=== PATIENT | female | born 1935 | race Caucasian/White ===

== ENCOUNTER 2017-06-06 13:59 | Outpatient (CLI) | payer BC ==
[2017-06-06 15:27] LABS: Bilirubin Negative (Negative); Blood, Urine Negative (Negative); Clarity CLOUDY (Clear); Glucose, Urine (Dipstick) Negative (Negative); Leukocyte Negative (Negative); Nitrite Negative (Negative); Protein, Urine (Dipstick) Negative (Neg-Trace); Specific Gravity, Urine 1.016 (1.002-1.036); Urobilinogen 0.2 mg/dL (0.2-1.0)
[2017-06-06 15:29] LABS: #Basophils 0.1 thou/uL (0.0-0.2); #Eosinphils 0.2 thou/uL (0.0-0.7); #Monocytes 0.8 thou/uL (0.11-0.59); #Neutrophils 5.8 thou/uL (1.40-6.50); %Basophils 1.5 % (0.0-1.0); %Lymphocytes 30.4 % (21.0-51.0); %Monocytes 7.8 % (0.0-10.0); %Neutrophils 58.4 % (42.0-75.0); Hemoglobin 13.7 g/dL (12.0-16.0); Mean Corpuscular HGB CONC 33.8 g/dL (32.0-36.0); Mean Corpuscular Hemoglobin 33.1 pg (27.0-31.0); Mean Corpuscular Volume 98.2 fl (81.0-99.0); Mean Platelet Volume 7.6 fL (7.4-10.4); Platelet Count 297 thou/uL (130-400); RBC Distribution Width 12.2 % (11.5-14.5); Red Blood Cell (RBC) Count 4.14 mill/uL (4.20-5.40); White Blood Cell (WBC) Count 9.9 thou/uL (4.8-10.8)
--- NOTE | 2017-06-06 15:33 | RAD ---
TWO VIEWS CHEST: History: Pre-operative exam. Comparison: 06-07-06 FINDINGS: Normal cardiac silhouette. The pulmonary vessels and hilum are normal. Costophrenic angles are clear. Hyperinflation. Questionable nodule versus summation artifact in the right lung base. No pneumothora x or osseous abnormality. IMPRESSION: Questionable artifact versus nodule in the right lung base. CT is recommended. Code T POS: REZA
[2017-06-06 15:49] LABS: Anion Gap 12 mmol/L (10-20); BUN (Urea Nitrogen) 20 mg/dL (9.8-20.1); Calc. Creatinine Clearance 0 mL/min (70-130); Calcium 9.5 mg/dL (7.8-10.44); Carbon Dioxide 29 mmol/L (23-31); Chloride 103 mmol/L (98-107); Estimated GFR-MDRD 71; Glucose 125 mg/dL (83-110); Potassium 3.9 mmol/L (3.5-5.1); Sodium 140 mmol/L (136-145)
== END 2017-06-06 14:00 | disposition home or self-care (01) ==
LOC: LABBT 13:59
PROVIDERS: ATTEND Orthopaedic Surgery Hand Surgery
DX: Z01.818 Encounter for other preprocedural examination (principal); M65.332 Trigger finger, left middle finger; M65.331 Trigger finger, right middle finger; M65.322 Trigger finger, left index finger; M65.321 Trigger finger, right index finger; Z88.8 Allergy status to other drugs, medicaments and biological substances; Z88.1 Allergy status to other antibiotic agents
CPT/HCPCS: 71046; 80048; 81003; 85025; 93005; 93010

== ENCOUNTER 2017-06-07 08:28 | Day surgery (SDC) | payer BC ==
[2017-06-06 14:29] VITALS: BMI 22.2
[2017-06-07] MEDS ORDERED: Midazolam HCl 2 mg/2 ml Vial ONE (09:59)
[2017-06-07] MEDS ORDERED: Dexamethasone 20 MG/5 ML VIAL ONE ×2 (11:41)
[2017-06-07] MEDS ORDERED: Ondansetron HCl/PF 4 MG/2 ML Vial ONE (11:41)
[2017-06-07] MEDS ORDERED: PROPOFOL 200 MG/20 ML VIAL ONE (11:41)
[2017-06-07] MEDS ORDERED: Lidocaine 1% PF 5 ML VIAL ONE (11:41)
[2017-06-07] MEDS ORDERED: Fentanyl 100 MCG/2 ML VIAL ONE ×3 (12:43→16:43)
[2017-06-07] MEDS ORDERED: Bacitracin Zinc Ointment 30 gm TUBE ONE ×2 (14:29→15:27)
[2017-06-07] MEDS ORDERED: Bupivacaine PF 0.5% 30 ML VIAL ONE (14:29)
[2017-06-07] MEDS ORDERED: Sodium Chloride 0.9% 10 ML ONE (14:29)
[2017-06-07] MEDS ORDERED: Clindamycin/D5W 600 mg/50 ml Premix Bag ONE (14:39)
[2017-06-07] MEDS ORDERED: Betamet Acet/Betamet Na Ph 30 MG/5 ML VIAL ONE (15:27)
[2017-06-07] MEDS ORDERED: Non-Formulary Medication 1 EACH PO PRN (16:47)
[2017-06-07] MEDS ORDERED: Ondansetron HCl/PF 4 MG/2 ML Vial IVP PRN ×2 (16:47)
[2017-06-07] MEDS ORDERED: Promethazine HCl 25 MG/ML VIAL IM/IV PRN ×2 (16:47)
--- NOTE | 2017-06-07 22:20 | OP ---
PREOPERATIVE DIAGNOSIS: Right and left index and middle finger trigger digit. POSTOPERATIVE DIAGNOSIS: Tight A1 olga at the right and left middle finger and index finger. PROCEDURES PERFORMED: Right side: 1. Index finger A1 olga release. 2. Middle finger A1 olga release. Left side: 1. Index finger trigger digit release. 2. Middle finger trigger digit release. TOURNIQUET TIME: On the right was 9 minutes and on the left was 10 minutes. ESTIMATED BLOOD LOSS: Less than 5 mL bilateral. INJECTABLE: Celestone 2.5 mL in each side drip technique. INDICATION: The patient with pain, catching, and incomplete motion to index and long finger leesaatera l. DESCRIPTION OF PROCEDURE: After successful general LMA technique, the limb was prepped and draped bi laterally. We then gave each site, 8 mL of 0.5% Marcaine local infiltrated block, we began on the le ft with exsanguination of the limb. A timeout was done for left and right and then tourniquet inflat ed to 250 mmHg pressure at the mid forearm and left because the IV was in antecubital. We then made a zigzag incision centered between the two A1 olga dissecting first toward the index side visualize d both neurovascular bundles and then between them, the A1 olga, which was very thick. We made an incision throughout the entire length, visualized directly with a Tarlton blade, lifted up the tendon, there were no masses. At the left side, then we dissected to the other side neurovascular bundle between the index and long finger, and at the middle finger protected it, visualized the A1 olga and released it as well as n o tenosynovitis either side on the left, no synovectomy was done. The mirror image procedure that just described on the left side, we have done on the right with the s gali findings and results. Both sides, the tourniquets were released, which was 9 on the right and 10 on the left. We then obta ined hemostasis, placed 2.5 mL drip technique into both wounds, closed individually with 5-0 nylon in terrupted mattress pattern. A bulky dressing was applied and the patient left the operating room wit h pink digits. No evidence of anesthetic or operative complications.
== END 2017-06-07 17:52 | disposition home or self-care (01) ==
LOC: SDC 08:28
PROVIDERS: ATTEND Orthopaedic Surgery Hand Surgery
PROC: 0LN70ZZ Release Right Hand Tendon, Open Approach (ICD-10-PCS; principal; 2017-06-07)
PROC: 0LN80ZZ Release Left Hand Tendon, Open Approach (ICD-10-PCS; principal; 2017-06-07)
DX: M65.321 Trigger finger, right index finger (principal); M65.322 Trigger finger, left index finger; M65.331 Trigger finger, right middle finger; M65.332 Trigger finger, left middle finger; Z88.0 Allergy status to penicillin; Z88.8 Allergy status to other drugs, medicaments and biological substances; Z79.899 Other long term (current) drug therapy; Z96.653 Presence of artificial knee joint, bilateral; Z96.642 Presence of left artificial hip joint
CPT/HCPCS: 96374; A4216; J0702; J1100; J2001; J2250; J2405; J2704; J3010; J3490; S0020

== ENCOUNTER 2017-09-16 11:00 | Day surgery (SDC) | payer BC ==
[2017-09-15 13:30] VITALS: BMI 22.2
[2017-09-16] MEDS ORDERED: Gadobenate Dimeglumine 529 MG/1 ML (20ML VIAL) ONE (12:20)
--- NOTE | 2017-09-16 14:15 | MRI ---
MRI OF THE RIGHT SHOULDER MRI OF THE RIGHT SHOULDER WITH AND WITHOUT CONTRAST: INDICATION: History of rotator cuff tear. CONTRAST: 13 cc of MultiHance. FINDINGS: There is a full-thickness tear involving the anterior supraspinatus at the footprint measuring 1.2 x 1.1 cm greatest mediolateral AP dimensions respectively. There is complete disruption of the biceps tendon with distal retraction. There is prominent degenerative change of the supraglenoid labrum bic eps anchor. There is moderate tendonosis of the subscapularis, supraspinatus, and infraspinatus. Th ere is mild muscular atrophy of the supraspinatus. There is mild to moderate AC joint osteoarthrosis . IMPRESSION: 1. Full-thickness partial-width tear of the anterior supraspinatus at the footprint. 2. Complete disruption of the proximal longhead of the biceps tendon with distal retraction. 3. Prominent degenerative fraying of the supraglenoid labrum. 4. Moderate acromioclavicular joint osteoarthrosis. 5. Mild supraspinatus muscular atrophy. 6. No abnormal enhancement demonstrated. POS: SHERMAN
== END 2017-09-16 14:44 | disposition home or self-care (01) ==
LOC: SDC/OP 11:00
PROVIDERS: ATTEND Orthopaedic Surgery Hand Surgery
DX: M75.121 Complete rotator cuff tear or rupture of right shoulder, not specified as traumatic (principal); M66.821 Spontaneous rupture of other tendons, right upper arm; M19.011 Primary osteoarthritis, right shoulder; M62.511 Muscle wasting and atrophy, not elsewhere classified, right shoulder
CPT/HCPCS: 82565

== ENCOUNTER 2024-04-09 16:09 | Inpatient (IN) | payer BC, MEDICARE ==
[2024-04-09 17:21] LABS: Bacteria/HPF 4+ HPF (None Seen); Bilirubin Negative (Negative); Blood, Urine 2+ (Negative); CAUTI Indications for Culture Alt mental st,lethar; Clarity Turbid (Clear); Glucose, Urine (Dipstick) Normal (Negative); Ketone, Urine Negative (Negative); Leukocyte 500 Leu/uL (Negative); Nitrite 1+ (Negative); Protein, Urine (Dipstick) 10 mg/dL (Neg-Trace); Specific Gravity, Urine 1.017 (1.002-1.036); Squamous Epithelial 0-3 HPF (0-3); Urobilinogen Normal mg/dL (Less than 2); WBC/HPF Greater than 50 HPF (0-3)
[2024-04-09 17:22] LABS: Urine Culture Reflex Yes Yes
[2024-04-09] MEDS ORDERED: Cefepime 2 GM VIAL ONE (17:34)
[2024-04-09] MEDS ORDERED: Sodium Chloride 0.9% 100 ML ONE (17:34)
[2024-04-09 17:50] LABS: #Basophils 0.11 10x3/uL (0.0-0.2); %Basophils 0.6 % (0.0-1.0); %Eosinophils 0.6 % (0.0-10.0); %Lymphocytes 7.6 % (21.0-51.0); %Monocytes 4.4 % (0.0-10.0); %Neutrophils 86.4 % (42.0-75.0); Hematocrit 44.2 % (36.0-47.0); Hemoglobin 13.9 g/dL (12.0-16.0); Mean Corpuscular HGB CONC 31.4 g/dL (32.0-36.0); Mean Corpuscular Hemoglobin 32.3 pg (27.0-31.0); Mean Corpuscular Volume 102.8 fL (78.0-98.0); Mean Platelet Volume 10.9 fL (7.4-10.4); Platelet Count 203 10x3/uL (130-400); RBC Distribution Width 13.8 % (11.5-14.5)
[2024-04-09 17:55] LABS: PTT 26.3 sec (22.9-36.1); Prothrombin Time 13.6 sec (12.0-14.7)
[2024-04-09 18:01] LABS: ALT (SGPT) 18 U/L (Less than 34); AST (SGOT) 26 U/L (11-34); Acetaminophen Less than 10 mcg/mL (Less than 10); Albumin 3.5 g/dL (3.1-4.5); Alcohol Less than 10.0 mg/dL (Less than 10); Alkaline Phosphatase 103 U/L (40-110); Anion Gap 18 mmol/L (10-20); BUN (Urea Nitrogen) 20 mg/dL (9.8-20.1); Bilirubin, Total 0.3 mg/dL (0.3-1.2); Calc. Creatinine Clearance 0 mL/min (70-130); Calcium 9.3 mg/dL (7.8-10.44); Carbon Dioxide 21 mmol/L (23-31); Chloride 113 mmol/L (98-107); Estimated GFR 57; Globulin 4.2 g/dL (2.4-3.5); Glucose 165 mg/dL (83-110); Potassium 4.5 mmol/L (3.5-5.1); Protein, Total 7.7 g/dL (5.8-8.1); Salicylate Less than 8.0 mg/dL (Less than 8.0); Sodium 147 mmol/L (136-145)
[2024-04-09 18:05] LABS: Troponin I 0.016 ng/mL (< 0.028)
[2024-04-09] MEDS ORDERED: Ondansetron PF 4 MG/2 ML Vial IVP PRN (19:19)
[2024-04-09] MEDS ORDERED: Ondansetron ODT 4 MG TAB PO PRN (19:19)
[2024-04-09] MEDS ORDERED: Acetaminophen 325 MG TAB PO PRN (19:19)
[2024-04-09 22:16] VITALS: BMI 25.0
[2024-04-09] MEDS: Famotidine 20 MG TAB PO SCH (22:18)
[2024-04-09] MEDS: Vancomycin (BATCH) 2 GM in Premix 1 BAG IVPB SCH (22:18)
[2024-04-09] MEDS: Famotidine/PF 20 mg/2ml Vial SLOW IVP SCH (22:26)
[2024-04-09] MEDS: Sodium Chloride 0.9% 1,000 ML IV SCH (23:08)
[2024-04-10] MEDS: Lactated Ringer's 500 ML IV SCH (01:13)
[2024-04-10 04:20] LABS: #Basophils 0.08 10x3/uL (0.0-0.2); %Basophils 0.3 % (0.0-1.0); %Eosinophils 0.6 % (0.0-10.0); %Monocytes 5.1 % (0.0-10.0); %Neutrophils 79.5 % (42.0-75.0); Hematocrit 37.3 % (36.0-47.0); Hemoglobin 11.5 g/dL (12.0-16.0); Mean Corpuscular HGB CONC 30.8 g/dL (32.0-36.0); Mean Corpuscular Hemoglobin 32.3 pg (27.0-31.0); Mean Corpuscular Volume 104.8 fL (78.0-98.0); Platelet Count 192 10x3/uL (130-400); RBC Distribution Width 13.8 % (11.5-14.5); Red Blood Cell (RBC) Count 3.56 mill/uL (4.20-5.40)
[2024-04-10] MEDS: Acetaminophen 650 MG Suppository PR PRN (04:31)
[2024-04-10 04:33] LABS: ALT (SGPT) 14 U/L (Less than 34); AST (SGOT) 21 U/L (11-34); Albumin 2.8 g/dL (3.1-4.5); Alkaline Phosphatase 76 U/L (40-110); Anion Gap 15 mmol/L (10-20); BUN (Urea Nitrogen) 16 mg/dL (9.8-20.1); Bilirubin, Total 0.4 mg/dL (0.3-1.2); Calc. Creatinine Clearance 58 mL/min (70-130); Calcium 8.2 mg/dL (7.8-10.44); Carbon Dioxide 21 mmol/L (23-31); Chloride 116 mmol/L (98-107); Estimated GFR 73; Globulin 3.4 g/dL (2.4-3.5); Glucose 125 mg/dL (83-110); Potassium 3.9 mmol/L (3.5-5.1); Protein, Total 6.2 g/dL (5.8-8.1); Sodium 148 mmol/L (136-145)
[2024-04-10] MEDS: Cefepime 2 GM in Sodium Chloride 0.9% 100 ML IVPB SCH (05:37)
[2024-04-10] MEDS: Azithromycin 500 MG in Sodium Chloride 0.9% 250 ML 250 ML IVPB SCH (11:13)
[2024-04-10] MEDS: Sertraline 100 MG TAB PO SCH (18:02)
[2024-04-10] MEDS: Dextrose 5%-Lactated Ringers 1,000 ML IV SCH (20:19)
[2024-04-10] MEDS ORDERED: B6 PO SCH (21:00)
[2024-04-10] MEDS ORDERED: LEVOMEFOLATE PO SCH (21:00)
[2024-04-10] MEDS ORDERED: B12 PO SCH (21:00)
[2024-04-10] MEDS ORDERED: ACETAMINOPHEN PO SCH (21:00)
[2024-04-10] MEDS ORDERED: ALGAL OIL PO SCH (21:00)
[2024-04-10] MEDS: Cholestyramine/Aspartame 4 gm Packet PO SCH (21:13)
[2024-04-10] MEDS: Gabapentin 300 MG CAP PO SCH (21:13)
[2024-04-10] MEDS: Senokot S 8.6-50 MG TAB PO SCH (21:13)
[2024-04-10] MEDS: QUEtiapine 25 MG TAB PO SCH (21:13)
[2024-04-10] MEDS ORDERED: Sterile Water 10 ML VIAL FS PRN (22:30)
[2024-04-10] MEDS: Ziprasidone 20 MG VIAL IM SCH (22:43)
[2024-04-11 05:54] LABS: #Basophils 0.06 10x3/uL (0.0-0.2); %Basophils 0.4 % (0.0-1.0); %Eosinophils 1.3 % (0.0-10.0); %Lymphocytes 14.5 % (21.0-51.0); %Monocytes 5.8 % (0.0-10.0); %Neutrophils 77.4 % (42.0-75.0); Hematocrit 38.1 % (36.0-47.0); Hemoglobin 12.3 g/dL (12.0-16.0); Mean Corpuscular HGB CONC 32.3 g/dL (32.0-36.0); Mean Corpuscular Hemoglobin 32.7 pg (27.0-31.0); Mean Corpuscular Volume 101.3 fL (78.0-98.0); Mean Platelet Volume 11.6 fL (7.4-10.4); Platelet Count 134 10x3/uL (130-400); RBC Distribution Width 13.7 % (11.5-14.5); Red Blood Cell (RBC) Count 3.76 mill/uL (4.20-5.40)
[2024-04-11] MEDS: Polyethylene Glycol 3350 17 GM Packet PO SCH (08:32)
[2024-04-11] MEDS: Cyanocobalamin (Vitamin B-12) 1,000 MCG TAB PO SCH (08:33)
[2024-04-11] MEDS: Cholecalciferol 1,000 UNITS (25 MCG) TAB PO SCH (08:33)
[2024-04-11] MEDS: Folic Acid 1 MG TAB PO SCH (08:33)
[2024-04-11] MEDS: Fish Oil 1,000 MG CAP PO SCH (08:34)
[2024-04-11] MEDS: Sertraline 100 MG TAB PO SCH (08:34)
[2024-04-11] MEDS: Dextrose 5% in Water 1,000 ML IV SCH (11:25)
[2024-04-11] MEDS: Melatonin 3 MG TAB PO PRN (20:13)
[2024-04-11 20:31] LABS: Chloride 108 mmol/L (98-107); Potassium 3.3 mmol/L (3.5-5.1); Sodium 139 mmol/L (136-145)
[2024-04-11 20:32] LABS: Calcium 8.3 mg/dL (7.8-10.44); Glucose 127 mg/dL (83-110)
[2024-04-11 20:34] LABS: Anion Gap 13 mmol/L (10-20); Carbon Dioxide 21 mmol/L (23-31)
[2024-04-11 20:36] LABS: BUN (Urea Nitrogen) 10 mg/dL (9.8-20.1); Calc. Creatinine Clearance 73 mL/min (70-130); Estimated GFR 86
[2024-04-12 05:32] LABS: #Basophils 0.06 10x3/uL (0.0-0.2); %Basophils 0.5 % (0.0-1.0); %Eosinophils 3.8 % (0.0-10.0); %Lymphocytes 22.2 % (21.0-51.0); %Monocytes 7.5 % (0.0-10.0); %Neutrophils 65.3 % (42.0-75.0); Hematocrit 32.1 % (36.0-47.0); Hemoglobin 10.4 g/dL (12.0-16.0); Mean Corpuscular HGB CONC 32.4 g/dL (32.0-36.0); Mean Corpuscular Hemoglobin 32.4 pg (27.0-31.0); Mean Platelet Volume 10.8 fL (7.4-10.4); Platelet Count 174 10x3/uL (130-400); RBC Distribution Width 13.7 % (11.5-14.5); Red Blood Cell (RBC) Count 3.21 mill/uL (4.20-5.40)
[2024-04-12 05:44] LABS: Anion Gap 13 mmol/L (10-20); BUN (Urea Nitrogen) 8 mg/dL (9.8-20.1); Calc. Creatinine Clearance 68 mL/min (70-130); Calcium 8.2 mg/dL (7.8-10.44); Carbon Dioxide 22 mmol/L (23-31); Chloride 107 mmol/L (98-107); Estimated GFR 85; Glucose 114 mg/dL (83-110); Potassium 3.3 mmol/L (3.5-5.1); Sodium 139 mmol/L (136-145)
[2024-04-12] MEDS: Floranex 1 GM Packet PO SCH (08:43)
[2024-04-12] MEDS: Ipratropium/Albuterol 3 ML NEB NEB PRN (16:44)
[2024-04-13 06:56] LABS: #Basophils 0.08 10x3/uL (0.0-0.2); %Basophils 0.7 % (0.0-1.0); %Eosinophils 2.9 % (0.0-10.0); %Lymphocytes 20.8 % (21.0-51.0); %Monocytes 8.9 % (0.0-10.0); %Neutrophils 65.9 % (42.0-75.0); Hematocrit 32.4 % (36.0-47.0); Hemoglobin 10.4 g/dL (12.0-16.0); Mean Corpuscular HGB CONC 32.1 g/dL (32.0-36.0); Mean Corpuscular Hemoglobin 32.8 pg (27.0-31.0); Mean Corpuscular Volume 102.2 fL (78.0-98.0); Mean Platelet Volume 10.6 fL (7.4-10.4); Platelet Count 197 10x3/uL (130-400); RBC Distribution Width 13.6 % (11.5-14.5); Red Blood Cell (RBC) Count 3.17 mill/uL (4.20-5.40)
[2024-04-13 07:16] LABS: Anion Gap 13 mmol/L (10-20); BUN (Urea Nitrogen) 10 mg/dL (9.8-20.1); Calc. Creatinine Clearance 60 mL/min (70-130); Calcium 8.4 mg/dL (7.8-10.44); Carbon Dioxide 24 mmol/L (23-31); Chloride 110 mmol/L (98-107); Estimated GFR 76; Glucose 99 mg/dL (83-110); Potassium 3.4 mmol/L (3.5-5.1); Sodium 144 mmol/L (136-145)
[2024-04-14 04:36] VITALS: BP 130/68; TEMP 97.8
== END 2024-04-14 04:20 | DRG 871 ==
LOC: ERS 16:09 → 2NO 19:24 → T4-A 04-10 19:06
PROVIDERS: ADMIT Internal Medicine; ATTEND Hospitalist
DX: A41.59 Other Gram-negative sepsis (principal); G93.41 Metabolic encephalopathy; J18.9 Pneumonia, unspecified organism; J96.01 Acute respiratory failure with hypoxia; N39.0 Urinary tract infection, site not specified; E87.0 Hyperosmolality and hypernatremia; G25.81 Restless legs syndrome; Z96.653 Presence of artificial knee joint, bilateral; R65.20 Severe sepsis without septic shock; F03.C0 Unspecified dementia, severe, without behavioral disturbance, psychotic disturbance, mood disturbance, and anxiety; Z88.0 Allergy status to penicillin; Z88.4 Allergy status to anesthetic agent; Z88.8 Allergy status to other drugs, medicaments and biological substances
CPT/HCPCS: 36415; 36416; 70450; 71045; 80048; 80053; 80307; 81001; 83605; 84484; 85025; 85610; 85730; 86850; 86900; 86901; 87040; 87077; 87086; 87186; 87428; 93005; 94640; 96374; 96375; J0456; J0692; J3370; J3486; J3490; J7030; J7050; J7070; J7120; J7620